=== PATIENT | female | born 2000 | race Two or more races ===

== ENCOUNTER 2024-04-20 15:51 | Emergency (ER) | payer BC ==
[~2024-04-20] VITALS: Ht 160 cm; Wt 59.0 kg
[2024-04-20 16:04] VITALS: BP 111/71; TEMP 98.2; O2SAT 100
== END 2024-04-20 21:20 | disposition home or self-care (01) ==
LOC: ER 16:18
DX: T16.2XXA Foreign body in left ear, initial encounter (principal); W44.F9XA Other object of natural or organic material, entering into or through a natural orifice, initial encounter; Y93.9 Activity, unspecified; Y92.89 Other specified places as the place of occurrence of the external cause; Y99.8 Other external cause status